=== PATIENT | female | born 1985 | race African-American/Black ===

== ENCOUNTER → 2023-06-06 | Emergency (ER) | payer OTHER ==
[~2023-06-06] MED LIST: ACETAMINOPHEN 500 MG TAB ONE; ALBUTEROL 2.5 MG/3 ML NEB SOL ONE; DIPHENHYDRAMINE 50 MG/ML VIAL ONE; IPRATROPIUM BROM 0.5MG/2.5ML ONE; KETOROLAC 30 MG/ML INJ ONE; METOCLOPRAMIDE 10 MG/2mL INJ ONE; NA CHLORIDE 0.9% 1,000 ML ONE
[2023-06-06 05:54] LABS: Absolute Lymphocytes (CBC) 0.3 K/uL (0.7-4.9); Lymphocytes % 3.4 % (15.3-44.8); MCV 76.4 fL (80-100); MPV 7.2 fL (7.6-11.3); Platelets 347 thou/uL (152-406); RBC Red Blood Cell Count 4.98 M/uL (3.86-4.86)
[2023-06-06 06:07] LABS: Albumin 3.2 g/dL (3.4-5.0); Bilirubin Total 0.6 mg/dL (0.2-1.0); Potassium 3.2 mEq/L (3.5-5.1); Protein, Total 8.4 g/dL (6.4-8.2)
--- NOTE | 2023-06-06 06:45 | EDPHYS ---
Physician Documentation [facility] Name: Ave Somers Age: 38 yrs Sex: Female : 1985 Arrival Date: 06/06/2023 Time: 05:09 Bed 14 Private MD: ED Physician Fabrizio Centeno HPI: 06/06 05:25 This 38 yrs old Black Female presents to ER via Wheelchair with complaints of Shortness ec2 Of Breath, Cough, Chest Congestion. 05:25 Patient arrives today for evaluation of URI signs and symptoms. Reports that she has ec2 been experiencing symptoms for 1 day. Patient reports some associated decreased p.o. intake, nausea, vomiting, no diarrhea symptoms. States that she has some shortness of breath as well as a persistent frequent cough with productive sputum. Reports congestion as well.. 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 - Social history:: Smoking status: Reported history of juuling and/or vaping. Patient uses alcohol, occasionally. street drugs, marijuana. ROS: 05:25 Constitutional: as per hpi ec2 Exam: 05:25 Constitutional: GEN: NAD Head: atraumatic Eyes: EOMI Ears: External ears are ec2 normal. CV: tachycardia LUNGS: no respiratory distress, no wheezes, no rales, no rhonchi ABD: non-distended SKIN: no evidence of rashes MSK: no evidence of trauma NEURO: moves all extremities equally Vital Signs: 05:21 BP 129 / 89; Pulse 114; Resp 18; Temp 99.4(O); Pulse Ox 97% on R/A; Weight 124.74 kg km8 (R); Height 5 ft. 6 in. (R); Pain 4/10; 05:48 BP 105 / 78; Pulse 117; Pulse Ox 99% on Nebulizer Mask; km8 06:00 BP 112 / 69; Pulse 142; Resp 18; Pulse Ox 100% on R/A; km8 06:06 BP 105 / 78; Pulse 145; ec2 06:27 BP 112 / 69; Pulse 134; ec2 06:30 BP 118 / 66; Pulse 134; Resp 18; Pulse Ox 98% on R/A; km8 06:45 Pulse 131; Pulse Ox 95% on R/A; km8 05:21 Body Mass Index 44.39 (124.74 kg, 167.64 cm) [facility] 05:21 Pain Scale: Adult km8 [place] Coma Score: 05:25 Eye Response: spontaneous(4). Motor Response: obeys commands(6). Verbal Response: km8 oriented(5). Total: 15. MDM: 05:23 Patient medically screened. ec2 05:25 Data reviewed: vital signs. ED course: Patient arrives today for evaluation of cough ec2 and cold symptoms. Examination remarkable for well-appearing nontoxic individual is otherwise in no acute distress. Will obtain lab work, chest x-ray, treat the patient symptoms with crystalloid, Reglan, Benadryl and Toradol as well as a DuoNeb. Currently considering viral infection, lower suspicion for pneumonia given lack of focal lung sounds.. 05:43 ED course: Chest x-ray independently reviewed and interpreted by me, shows no acute ec2 intrathoracic process.. 06:02 ED course: CBC is reassuring. . ec2 06:03 ED course: Patient slightly more tachycardic after the albuterol treatment. I suspect ec2 is secondary to the nebulizer treatment, will obtain an EKG.. 06:12 ED course: EKG independently reviewed and interpreted by me, sinus tachycardia, rate ec2 138, no acute ST segment elevations, nonconcerning intervals.. 06:16 ED course: Metabolic profile is reassuring. . ec2 06:44 ED course: On reassessment patient reports marked improvement in her symptoms. Will ec2 discharge to home, patient does have an improving tachycardia which is consistent with the DuoNeb administration. Will prescribe her albuterol as needed, will prescribe Tessalon Perles as well. Return precautions given. I suspect a viral process causing her symptoms.. 06/06 05:24 Order name: CBC with Diff ec2 06/06 05:24 Order name: CMP; Complete Time: 06:16 ec2 06/06 05:24 Order name: CXR XRAY ec2 06/06 05:24 Order name: PO challenge; Complete Time: 06:16 ec2 06/06 06:03 Order name: EKG - Nurse/Tech; Complete Time: 06:16 ec2 Administered Medications: 05:47 Drug: NS 0.9% IV 1000 ml IV at 1 bolus Per protocol; 1000 mL bolus Route: IV; Rate: 1 km8 bolus; Site: left antecubital; 06:56 Follow up: IV Status: Order to discontinue infusion; IV Intake: 800ml km8 05:47 Drug: metoCLOPramide IVP 10 mg IVP once; over 1 to 2 minutes Route: IVP; Site: left [facility] antecubital; 06:16 Follow up: Response: No adverse reaction 8 05:47 Drug: diphenhydrAMINE IVP 25 mg IVP once Route: IVP; Site: left antecubital; km8 06:16 Follow up: Response: No adverse reaction 8 05:47 Drug: Ketorolac IVP 15 mg IVP once Route: IVP; Site: left antecubital; km8 06:16 Follow up: Response: No adverse reaction km8 05:48 Drug: DuoNeb Nebulize (3:1) (2.5 mg - 0.5 mg) 3 ml Nebulizer once Route: Nebulizer; km8 06:15 Follow up: Response: No adverse reaction km8 06:15 Drug: Acetaminophen PO 1000 mg PO once Route: PO; km8 06:56 Follow up: Response: No adverse reaction km8 06:15 Drug: NS 0.9% IV 1000 ml IV at 1 bolus Per protocol; 1000 mL bolus Route: IV; Rate: 1 km8 bolus; Site: left antecubital; 06:56 Follow up: IV Status: Order to discontinue infusion; IV Intake: 400ml km8 Disposition Summary: 06/06/23 06:45 Discharge Ordered Notes: Location: Home ec2 Condition: Stable ec2 Diagnosis - Viral infection, unspecified ec2 Followup: ec2 - With: Private Physician - When: - Reason: Recheck today's complaints Discharge Instructions: - Discharge Summary Sheet ec2 - Viral Illness, Adult ec2 Forms: - Medication Reconciliation Form ec2 - Thank You Letter ec2 - Antibiotic Education ec2 - Prescription Opioid Use ec2 - Patient Portal Instructions ec2 - Leadership Thank You Letter ec2 Prescriptions: - albuterol sulfate 90 mcg/actuation Inhalation HFA Aerosol Inhaler - inhale 2 inhalation INHALATION route every 3 hours as needed for bronchospasm; ec2 administer via ventilator; 1 unit; Refills: 0, Product Selection Permitted - Zofran 4 mg Oral Tablet - take 1 tablet ORAL route every 12 hours As needed; 20 tablet; Refills: 0, ec2 Product Selection Permitted - Tessalon Perles 100 mg Oral Capsule - take 1 capsule ORAL route every 8 hours As needed; 15 capsule; Refills: 0, ec2 Product Selection Permitted Signatures: Dispatcher [employer] Fabrizio Pearce MD MD ec2 Yolanda Melendez RN RN km8
--- NOTE | 2023-06-06 06:45 | ER ---
Nurse's Notes [facility] Name: Ave Somers Age: 38 yrs Sex: Female : 1985 Arrival Date: 06/06/2023 Time: 05:09 Bed 14 Private MD: Diagnosis: Viral infection, unspecified Presentation: 06/06 05:21 Chief complaint: Patient states: fever, dry cough, congestion, and vomiting starting 2 km8 days ago. Coronavirus screen: Client denies travel out of the [place] in the last 14 days. Ebola Screen: No symptoms or risks identified at this time. Initial Sepsis Screen: Does the patient meet any 2 criteria? HR > 90 bpm. Does the patient have a suspected source of infection? No. Patient's initial sepsis screen is negative. Risk Assessment: Do you want to hurt yourself or someone else? Patient reports no desire to harm self or others. Onset of symptoms was June 04, 2023. 05:21 Method Of Arrival: Wheelchair km8 05:21 Acuity: LAY 4 km8 Triage Assessment: 05:22 General: Appears in no apparent distress. uncomfortable, Behavior is calm, cooperative, km8 appropriate for age. Pain: Complains of pain in generalized body Pain currently is 4 out of 10 on a pain scale. EENT: Reports nasal congestion. Neuro: Level of Consciousness is awake, alert, obeys commands, Oriented to person, place, time, situation. Cardiovascular: Denies chest pain, shortness of breath, Capillary refill < 3 seconds Patient's skin is warm and dry. Respiratory: Reports cough that is dry, Airway is patent Respiratory effort is even, labored, Respiratory pattern is regular, symmetrical, Onset: The symptoms/episode began/occurred gradually, the patient has mild shortness of breath. GI: Reports nausea, vomiting. : No signs and/or symptoms were reported regarding the genitourinary system. Derm: No signs and/or symptoms reported regarding the dermatologic system. Skin is intact, is healthy with good turgor, Skin is dry, Skin is pink, warm \T\ dry. normal, Skin temperature is warm. Musculoskeletal: No signs and/or symptoms reported regarding the musculoskeletal system. Circulation, motion, and sensation intact. Range of motion: intact in all extremities. 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 - Social history:: Smoking status: Reported history of juuling and/or vaping. Patient uses alcohol, occasionally. street drugs, marijuana. Screenin:25 [facility] ED Fall Risk Assessment (Adult) History of falling in the last 3 months, km8 including since admission No falls in past 3 months (0 pts) Confusion or Disorientation No (0 pts) Intoxicated or Sedated No (0 pts) Impaired Gait No (0 pts) Mobility Assist Device Used No (0 pt) Altered Elimination No (0 pt) Score/Fall Risk Level 0 - 2 = Low Risk Oriented to surroundings, Maintained a safe environment, Educated pt \T\ family on fall prevention, incl call for assistance when getting out of bed, Assessed \T\ reinforced patient's understanding of fall precautions. Abuse screen: Denies threats or abuse. Denies injuries from another. Nutritional screening: No deficits noted. Tuberculosis screening: No symptoms or risk factors identified. Assessment: 05:25 General: see triage assessment/notes. [facility] 06:16 Reassessment: MD notified of HR reaching 150, EKG ordered; pt reports feeling better [facility] after the albuterol treatment. 06:30 Reassessment: Patient appears in no apparent distress at this time. Patient and/or km8 family updated on plan of care and expected duration. Pain level reassessed. Patient is alert, oriented x 3, equal unlabored respirations, skin warm/dry/pink. Patient states symptoms have improved. Vital Signs: 05:21 BP 129 / 89; Pulse 114; Resp 18; Temp 99.4(O); Pulse Ox 97% on R/A; Weight 124.74 kg km8 (R); Height 5 ft. 6 in. (R); Pain 4/10; 05:48 BP 105 / 78; Pulse 117; Pulse Ox 99% on Nebulizer Mask; km8 06:00 BP 112 / 69; Pulse 142; Resp 18; Pulse Ox 100% on R/A; km8 06:06 BP 105 / 78; Pulse 145; ec2 06:27 BP 112 / 69; Pulse 134; ec2 06:30 BP 118 / 66; Pulse 134; Resp 18; Pulse Ox 98% on R/A; km8 06:45 Pulse 131; Pulse Ox 95% on R/A; km8 05:21 Body Mass Index 44.39 (124.74 kg, 167.64 cm) km8 05:21 Pain Scale: Adult km8 [place] Coma Score: 05:25 Eye Response: spontaneous(4). Motor Response: obeys commands(6). Verbal Response: km8 oriented(5). Total: 15. ED Course: 05:12 Patient arrived in ED. jj6 05:12 Fabrizio Centeno MD is Attending Physician. ec2 05:22 Triage completed. km8 05:22 Arm band placed on right wrist. km8 05:25 Patient has correct armband on for positive identification. Bed in low position. Call km8 light in reach. Side rails up X 1. Pulse ox on. NIBP on. 05:25 No provider procedures requiring assistance completed. Patient maintains SpO2 km8 saturation greater than 95% on room air. 05:33 Inserted saline lock: 20 gauge in left antecubital area, using aseptic technique. Blood km8 collected. 05:38 CXR XRAY In Process Unspecified. EDMS 05:49 Yolanda Melendez, RN is Primary Nurse. km8 06:15 Diet: Patient given water. Tolerated well. km8 06:55 Provided Education on: d/c teaching. km8 06:55 IV discontinued, intact, bleeding controlled, No redness/swelling at site. Pressure km8 dressing applied. Administered Medications: 05:47 Drug: NS 0.9% IV 1000 ml IV at 1 bolus Per protocol; 1000 mL bolus Route: IV; Rate: 1 km8 bolus; Site: left antecubital; 06:56 Follow up: IV Status: Order to discontinue infusion; IV Intake: 800ml km8 05:47 Drug: metoCLOPramide IVP 10 mg IVP once; over 1 to 2 minutes Route: IVP; Site: left km8 antecubital; 06:16 Follow up: Response: No adverse reaction km8 05:47 Drug: diphenhydrAMINE IVP 25 mg IVP once Route: IVP; Site: left antecubital; km8 06:16 Follow up: Response: No adverse reaction km8 05:47 Drug: Ketorolac IVP 15 mg IVP once Route: IVP; Site: left antecubital; km8 06:16 Follow up: Response: No adverse reaction km8 05:48 Drug: DuoNeb Nebulize (3:1) (2.5 mg - 0.5 mg) 3 ml Nebulizer once Route: Nebulizer; km8 06:15 Follow up: Response: No adverse reaction km8 06:15 Drug: Acetaminophen PO 1000 mg PO once Route: PO; km8 06:56 Follow up: Response: No adverse reaction km8 06:15 Drug: NS 0.9% IV 1000 ml IV at 1 bolus Per protocol; 1000 mL bolus Route: IV; Rate: 1 km8 bolus; Site: left antecubital; 06:56 Follow up: IV Status: Order to discontinue infusion; IV Intake: 400ml km8 Medication: 05:25 VIS not applicable for this client. km8 Intake: 06:56 IV: 400ml; Total: 400ml. km8 06:56 IV: 800ml; Total: 1200ml. km8 Outcome: 06:45 Discharge ordered by MD. ec2 06:55 Discharged to home ambulatory, with significant other, km8 06:55 Condition: good 06:55 Discharge instructions given to patient, significant other, Instructed on discharge instructions, follow up and referral plans. medication usage, Demonstrated understanding of instructions, follow-up care, medications, Prescriptions given X 3, 06:56 Patient left the ED. km8 Signatures: Dispatcher [employer] Maya Gonzalez jj6 Fabrizio Centeno MD MD ec2 Yolanda Melendez RN RN km8
[2023-06-06 07:00] LABS: Blood Morphology Comment NOT SEEN (NOT SEEN); Platelet Estimate ADEQ; White Blood Cell Scan OK (OK)
[2023-06-06 11:32] VITALS: TEMP 99.4
[2023-06-06 11:45] VITALS: BP 118/66; O2SAT 95
--- NOTE | 2023-06-06 14:52 | RAD REPORT ---
EXAM DESCRIPTION: RAD - Chest Single View - 06/06/2023 5:36 am CLINICAL HISTORY: SOB COMPARISON: None TECHNIQUE: Single AP view of the chest. FINDINGS: Lung volumes adequate. Cardiac silhouette is normal in size. No pneumothorax. No large pleural effusion. No focal consolidation. No acute bony finding. IMPRESSION: No evidence of acute cardiopulmonary disease. Electronically signed by: Crow Samson MD 06/06/2023 05:44 AM FAN INSTALLER Due to temporary technical issues with the PACS/Fluency reporting system, reports are being signed by the in house radiologist without review as a courtesy to ensure prompt reporting. The interpreting r adiologist is fully responsible for the content of the report.
--- NOTE | 2023-06-10 17:10 | EKG ---
Test Date: 2023-06-06 Test Time: 06:09:11 White Sourer: ALO MEASUREMENT RESULTS: Intervals: Rate: 138 SD: 96 QRSD: 78 QT: 386 QTc: 584 Watkins: P: SD: 96 QRS: -11 T: 44 INTERPRETIVE STATEMENTS: Sinus tachycardia with short SD Otherwise normal ECG No previous ECG available for comparison Electronically Signed On 06-10-23 16:56:56 RESOURCE ROOM SPECIAL EDUCATION TEACHER by Juanjose Vinson
== END ==
LOC: ER 05:09
DX: B34.9 Viral infection, unspecified (principal); Z91.018 Allergy to other foods
CPT/HCPCS: 96361; 93005; 85025; 36415; 80053; 71045; 94640; 96375; 96374; 99285; J2765; J1200; J7613; J7644; J7030 ×2

== ENCOUNTER → 2023-06-11 | Emergency (ER) | payer OTHER ==
[~2023-06-11] MED LIST changes: -ACETAMINOPHEN 500 MG TAB ONE; -ALBUTEROL 2.5 MG/3 ML NEB SOL ONE; +DICYCLOMINE HCL 10 MG CAP ONE; -DIPHENHYDRAMINE 50 MG/ML VIAL ONE; +FAMOTIDINE 20 MG TAB ONE; +FAMOTIDINE 20 MG/2 ML VIAL IV ONE; -IPRATROPIUM BROM 0.5MG/2.5ML ONE; -KETOROLAC 30 MG/ML INJ ONE; +POTASSIUM CL SA 10 MEQ TAB PO ONE; +PROMETHAZINE 25 MG TABLET ONE
[2023-06-12 00:21] LABS: Absolute Lymphocytes (CBC) 3.1 K/uL (0.7-4.9); Hematocrit 39.3 % (36.0-45.0); Lymphocytes % 49.3 % (15.3-44.8); MCV 76.5 fL (80-100); MPV 7.3 fL (7.6-11.3); Platelets 332 thou/uL (152-406); RBC Red Blood Cell Count 5.14 M/uL (3.86-4.86)
[2023-06-12 00:34] LABS: Albumin 3.2 g/dL (3.4-5.0); Bilirubin Total 0.5 mg/dL (0.2-1.0); Potassium 2.9 mEq/L (3.5-5.1); Protein, Total 8.2 g/dL (6.4-8.2)
[2023-06-12 00:47] LABS: Specific Gravity 1.015 (1.005-1.030)
[2023-06-12 00:47] LABS: Specific Gravity 1.015 (1.005-1.030); Urine Bilirubin 1+ (Negative); Urine Blood Negative (Negative); Urine Clarity Clear (Clear); Urine Color Yellow (Yellow); Urine Glucose Negative (Negative); Urine Protein 1+ (Negative)
[2023-06-12 00:48] LABS: Urine Bacteria <20 /HPF (<20); Urine Mucus Slight /HPF (None Seen); Urine RBC <5 /HPF (None Seen)
--- NOTE | 2023-06-12 04:35 | ER ---
Nurse's Notes [facility] Name: Ave Somers Age: 38 yrs Sex: Female : 1985 Arrival Date: 06/11/2023 Time: 22:27 Bed 12 Private MD: Diagnosis: Acute gastroenteritis, nausea vomiting diarrhea Presentation: 06/11 23:05 Chief complaint: Patient states: ABD PAIN X 4 DAYS. N/V/D. Coronavirus screen: At this [facility] time, the client does not indicate any symptoms associated with coronavirus-19. Ebola Screen: No symptoms or risks identified at this time. Initial Sepsis Screen: Does the patient meet any 2 criteria? No. Patient's initial sepsis screen is negative. Does the patient have a suspected source of infection? No. Patient's initial sepsis screen is negative. Risk Assessment: Do you want to hurt yourself or someone else? Patient reports no desire to harm self or others. 23:05 Method Of Arrival: Ambulatory [facility] 23:05 Acuity: LAY 3 j7 Triage Assessment: 23:09 General: Appears in no apparent distress. General: Appears uncomfortable, Behavior is [facility] calm, cooperative, appropriate for age. Pain: Complains of pain in epigastric area. GI: Reports upper abdominal pain, nausea. 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 - Social history:: Smoking status: Reported history of juuling and/or vaping. Patient uses alcohol, occasionally. street drugs, marijuana. Screenin:11 [facility] ED Fall Risk Assessment (Adult) History of falling in the last 3 months, j7 including since admission No falls in past 3 months (0 pts) Confusion or Disorientation No (0 pts) Intoxicated or Sedated No (0 pts) Impaired Gait No (0 pts) Mobility Assist Device Used No (0 pt) Altered Elimination No (0 pt) Score/Fall Risk Level 0 - 2 = Low Risk Oriented to surroundings, Maintained a safe environment, Educated pt \T\ family on fall prevention, incl call for assistance when getting out of bed. Abuse screen: Denies threats or abuse. Abuse screen: Denies injuries from another. Abuse screen: Denies threats or abuse. Nutritional screening: No deficits noted. Tuberculosis screening: No symptoms or risk factors identified. Assessment: 23:11 General: Appears in no apparent distress. comfortable, obese, well groomed, well pf1 developed, Behavior is calm, cooperative, appropriate for age, quiet. 23:11 Pain: Complains of pain in abdomen and epigastric area. Neuro: No deficits noted. Level pf1 of Consciousness is awake, alert, obeys commands, Oriented to person, place, time, situation. Cardiovascular: No deficits noted. Capillary refill < 3 seconds Patient's skin is warm and dry. Respiratory: No deficits noted. Airway is patent Respiratory effort is even, unlabored, Respiratory pattern is regular, symmetrical, Breath sounds are clear bilaterally. GI: Abdomen is round non-distended, Bowel sounds present X 4 quads. Abd is soft X 4 quads Reports upper abdominal pain, diarrhea, epigastric pain, nausea, vomiting. 06/12 00:00 Reassessment: Patient appears in no apparent distress at this time. Patient and/or pf1 family updated on plan of care and expected duration. Pain level reassessed. Patient is alert, oriented x 3, equal unlabored respirations, skin warm/dry/pink. 01:00 Reassessment: Patient appears in no apparent distress at this time. Patient and/or pf1 family updated on plan of care and expected duration. Pain level reassessed. Patient is alert, oriented x 3, equal unlabored respirations, skin warm/dry/pink. Patient states symptoms have improved. 02:00 Reassessment: Patient appears in no apparent distress at this time. Patient and/or pf1 family updated on plan of care and expected duration. Pain level reassessed. Patient is alert, oriented x 3, equal unlabored respirations, skin warm/dry/pink. Patient states feeling better. Patient states symptoms have improved. 03:00 Reassessment: Patient appears in no apparent distress at this time. Patient and/or pf1 family updated on plan of care and expected duration. Pain level reassessed. Patient is alert, oriented x 3, equal unlabored respirations, skin warm/dry/pink. Patient states feeling better. Patient states symptoms have improved. Vital Signs: 06/11 23:05 BP 129 / 92; Pulse 69; Resp 18; Temp 98.1; Pulse Ox 100% ; Weight 124.74 kg; Height 5 jj7 ft. 6 in. ; Pain 4/10; 06/12 00:00 BP 131 / 89; Pulse 71; Resp 16; Pulse Ox 100% ; pf1 01:00 BP 128 / 90; Pulse 75; Resp 16; Pulse Ox 100% on R/A; pf1 02:00 BP 135 / 87; Pulse 67; Resp 16; Pulse Ox 99% on R/A; pf1 03:00 BP 130 / 82; Pulse 65; Resp 16; Pulse Ox 99% on R/A; Pain 2/10; pf1 06/11 23:05 Body Mass Index 44.39 (124.74 kg, 167.64 cm) j7 06/11 23:05 Pain Scale: Adult j7 03:00 Pain Scale: Adult pf1 ED Course: 06/11 22:29 Patient arrived in ED. jj6 22:31 [facility] Burger [facility] kb 22:31 Rafael Corcoran MD is Attending Physician. kb 23:09 Triage completed. jj7 23:09 Arm band placed on right wrist. jj7 23:11 Patient has correct armband on for positive identification. Bed in low position. Call pf1 light in reach. Side rails up X 1. 23:11 No provider procedures requiring assistance completed. jj7 23:56 Inserted saline lock: 20 gauge in left antecubital area, using aseptic technique. Blood ty collected. 06/12 00:33 Test, Urine Sent. 00:34 CMP Sent. 00:34 Lipase Sent. 03:16 Provided Education on: prescriptions . pf1 03:16 IV discontinued, intact, bleeding controlled, No redness/swelling at site. Pressure pf1 dressing applied. 04:35 CT Abd/Pelvis - IV Contrast Only In Process Unspecified. EDMS Administered Medications: 01:00 Drug: NS 0.9% IV 1000 ml IV at 1 bolus Per protocol; 1000 mL bolus Route: IV; Rate: 1 pf1 bolus; Site: left antecubital; 02:00 Follow up: Response: No adverse reaction; Marked relief of symptoms; IV Status: pf1 Completed infusion; IV Intake: 1000ml 01:00 Drug: Famotidine IVP 20 mg IVP once; dilute with 10 mL 0.9% NaCl; give over 2 minutes pf1 Route: IVP; Site: left antecubital; 02:00 Follow up: Response: No adverse reaction; Marked relief of symptoms pf1 01:00 Drug: Potassium Chloride PO 40 mEq PO once Route: PO; pf1 02:00 Follow up: Response: No adverse reaction; Marked relief of symptoms pf1 02:40 Drug: metoCLOPramide IVP 10 mg IVP once; over 1 to 2 minutes Route: IVP; Site: left pf1 antecubital; 03:16 Follow up: Response: No adverse reaction; Marked relief of symptoms; Nausea is decreasedpf1 03:10 Drug: Promethazine PO 25 mg PO once Route: PO; pf1 03:16 Follow up: Response: No adverse reaction; Marked relief of symptoms; Nausea is decreasedpf1 03:10 Drug: Famotidine PO 20 mg PO once Route: PO; pf1 03:16 Follow up: Response: No adverse reaction; Marked relief of symptoms; Pain is decreased pf1 03:10 Drug: Dicyclomine PO 20 mg PO once Route: PO; pf1 03:16 Follow up: Response: No adverse reaction; Marked relief of symptoms; Pain is decreased pf1 Medication: 03:16 VIS not applicable for this client. pf1 Intake: 02:00 IV: 1000ml; Total: 1000ml. pf1 Outcome: 02:56 Discharge ordered by . sp4 03:14 Discharged to home ambulatory, with family, pf1 03:14 Condition: improved 03:14 Discharge instructions given to patient, family, Instructed on discharge instructions, follow up and referral plans. Demonstrated understanding of instructions, follow-up care, medications, Prescriptions given X 3, 03:16 Patient left the ED. pf1 Signatures: Dispatcher [employer] EDOH Josie Burger, [employer] PAINT TINTER-Ely Jacobsen Jennifer jj6 Allison Colby RN RN jj7 Nessa Roberts RN RN pf1 Rafael Corcoran MD MD sp4 Zacarias Villagomez ty Corrections: (The following items were deleted from the chart) 00:51 00:33 Urinalysis+U.LAB.BRZ drawn and sent. EDMS
--- NOTE | 2023-06-12 04:35 | EDPHYS ---
Physician Documentation [facility] Name: Ave Somers Age: 38 yrs Sex: Female : 1985 Arrival Date: 06/11/2023 Time: 22:27 Bed 12 Private MD: ED Physician Rafael Corcoran HPI: 06/11 23:17 This 38 yrs old Black Female presents to ER via Ambulatory with complaints of Abdominal kb Cramping, Abdominal Pain. 23:17 Patient is a 38-year-old female with no medical history who presents for upper kb abdominal pain, nausea and vomiting that started 3 days ago. Denies fever. States she had a virus last week but the symptoms had resolved from that.. 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 - Social history:: Smoking status: Reported history of juuling and/or vaping. Patient uses alcohol, occasionally. street drugs, marijuana. ROS: 23:16 Constitutional: Negative for fever, chills, and weight loss, kb 23:16 Abdomen/GI: Positive for abdominal pain, nausea and vomiting, 23:16 All other systems are negative, Exam: 23:16 Constitutional: This is a well developed, well nourished patient who is awake, alert, kb and in no acute distress. Head/Face: Normocephalic, atraumatic. ENT: Moist Mucous membranes Cardiovascular: Regular rate Respiratory: Respirations even and unlabored. No increased work of breathing. Talking in full sentences Abdomen/GI: Soft, non-tender. No distention Skin: Warm, dry with normal turgor. Normal color. MS/ Extremity: Pulses equal, no cyanosis. Neurovascular intact. Full, normal range of motion. Neuro: Awake and alert, GCS 15, oriented to person, place, time, and situation. Moves all extremities. Normal gait. Vital Signs: 23:05 BP 129 / 92; Pulse 69; Resp 18; Temp 98.1; Pulse Ox 100% ; Weight 124.74 kg; Height 5 jj7 ft. 6 in. ; Pain 4/10; 06/12 00:00 BP 131 / 89; Pulse 71; Resp 16; Pulse Ox 100% ; pf1 01:00 BP 128 / 90; Pulse 75; Resp 16; Pulse Ox 100% on R/A; pf1 02:00 BP 135 / 87; Pulse 67; Resp 16; Pulse Ox 99% on R/A; pf1 03:00 BP 130 / 82; Pulse 65; Resp 16; Pulse Ox 99% on R/A; Pain 2/10; pf1 06/11 23:05 Body Mass Index 44.39 (124.74 kg, 167.64 cm) [facility] 06/11 23:05 Pain Scale: Adult [facility] 03:00 Pain Scale: Adult pf1 MDM: 06/11 22:33 Patient medically screened. kb 23:17 Data reviewed: vital signs, nurses notes. kb 06/12 00:56 Transition of care: After a detail discussion of the patient's case, care is kb transferred to Rafael Corcoran MD. 02:49 Differential diagnosis: Gastritis, gastroenteritis. ED course: FINDINGS: Lung Bases: sp4 The visualized lung bases are clear. Abdomen: Liver: The liver has normal contour and density. No suspicious mass. Gallbladder: Surgically absent. No significant biliary dilatation. Spleen, Pancreas, and Adrenal Glands: The spleen, pancreas, and adrenal glands are unremarkable. Kidneys: No suspicious mass. No urinary tract calculi. No hydronephrosis. Vasculature: The aorta and IVC have normal caliber and position. The portal vein is patent. Stomach: Tiny hiatal hernia. Other: No free intraperitoneal air. No free fluid or lymphadenopathy. Pelvis: Bladder: Under distended. Bowel: No dilated loops of large or small bowel. No acute inflammatory process. Appendix: Normal appendix. Pelvis: No suspicious mass. Bones: No destructive bone lesions identified. IMPRESSION: No acute abnormality on CT of the abdomen and pelvis.. 02:55 Consideration of Admission/Observation Escalation of care including sp4 admission/observation considered. ED course: Patient's symptoms have improved after management in the ER. Patient stable to discharge home with clear liquid diet also Bentyl also Phenergan and p.o. Pepcid. Currently advise clear liquid diet for the next 24 hours. 06/11 22:39 Order name: CBC with Diff; Complete Time: 00:22 kb 06/11 22:39 Order name: CMP; Complete Time: 00:35 kb 06/11 22:39 Order name: Lipase; Complete Time: 00:35 kb 06/11 22:39 Order name: Test, Urine; Complete Time: 00:48 kb 06/12 00:47 Order name: Urinalysis w/ reflexes EDMS 06/11 22:39 Order name: CT Abd/Pelvis - IV Contrast Only kb 06/11 22:39 Order name: IV Saline Lock; Complete Time: 00:01 kb 06/11 22:39 Order name: Labs collected and sent; Complete Time: 00:01 kb Administered Medications: 01:00 Drug: NS 0.9% IV 1000 ml IV at 1 bolus Per protocol; 1000 mL bolus Route: IV; Rate: 1 pf1 bolus; Site: left antecubital; 02:00 Follow up: Response: No adverse reaction; Marked relief of symptoms; IV Status: pf1 Completed infusion; IV Intake: 1000ml 01:00 Drug: Famotidine IVP 20 mg IVP once; dilute with 10 mL 0.9% NaCl; give over 2 minutes pf1 Route: IVP; Site: left antecubital; 02:00 Follow up: Response: No adverse reaction; Marked relief of symptoms pf1 01:00 Drug: Potassium Chloride PO 40 mEq PO once Route: PO; pf1 02:00 Follow up: Response: No adverse reaction; Marked relief of symptoms pf1 02:40 Drug: metoCLOPramide IVP 10 mg IVP once; over 1 to 2 minutes Route: IVP; Site: left pf1 antecubital; 03:16 Follow up: Response: No adverse reaction; Marked relief of symptoms; Nausea is decreasedpf1 03:10 Drug: Promethazine PO 25 mg PO once Route: PO; pf1 03:16 Follow up: Response: No adverse reaction; Marked relief of symptoms; Nausea is decreasedpf1 03:10 Drug: Famotidine PO 20 mg PO once Route: PO; pf1 03:16 Follow up: Response: No adverse reaction; Marked relief of symptoms; Pain is decreased pf1 03:10 Drug: Dicyclomine PO 20 mg PO once Route: PO; pf1 03:16 Follow up: Response: No adverse reaction; Marked relief of symptoms; Pain is decreased pf1 Disposition: 02:55 Co-signature as Attending Physician, Josie BERMUDEZ I agree with the assessment sp4 and plan of care. I reviewed the patient's care provided by Advanced Practice Provider \T\ agree w/ the diagnosis \T\ care plan. I personally saw the pt \T\ performed a substantive portion of the visit, incldng all aspects of the (History/Exam/Medical Decision Making). Disposition Summary: 06/12/23 02:56 Discharge Ordered Notes: No work for next 3 days

Bed rest for next 3 days Location: Home sp4 Problem: new sp4 Symptoms: have improved sp4 Condition: Stable sp4 Diagnosis - Acute gastroenteritis, nausea vomiting diarrhea sp4 Followup: sp4 - With: Private Physician - When: 7 - 10 days - Reason: Recheck today's complaints Discharge Instructions: - Discharge Summary Sheet sp4 - Viral Gastroenteritis, Adult, [id number] sp4 - Clear Liquid Diet, Adult, [id number] sp4 Forms: - Patient Portal Instructions sp4 Prescriptions: - Pepcid 20 mg Oral tablet - take 1 tablet ORAL route every 12 hours for 30 days; 60 tablet; Refills: 0, sp4 Product Selection Permitted - promethazine 25 mg Oral tablet - take 1 tablet ORAL route every 6 hours As needed PRN nausea; 30 tablet; sp4 Refills: 0, Product Selection Permitted - dicyclomine 20 mg Oral tablet - take 1 tablet ORAL route every 6 hours PRN abdominal cramps; 60 tablet; sp4 Refills: 0, Product Selection Permitted Signatures: Dispatcher [employer] EDJosie Manrique FNP-C FNP-Ckb Johnson, Juwairiyah RN RN jj7 Nessa Roberts RN RN pf1 Rafael Corcoran MD MD sp4 Corrections: (The following items were deleted from the chart) 00:51 06/11 22:39 Urinalysis+U.LAB.BRZ ordered. EDTN EDTN
[2023-06-12 08:35] VITALS: BP 129/92; TEMP 98.1; O2SAT 100
--- NOTE | 2023-06-12 14:28 | RAD REPORT ---
EXAM DESCRIPTION: CT - Abdomen Pelvis W Contrast - 06/12/2023 1:52 am CLINICAL HISTORY: ABD PAIN COMPARISON: None Available. TECHNIQUE: CT of the abdomen and pelvis performed following the administration of IV contrast. No or al contrast. This exam was performed according to our departmental dose-optimization program, which i ncludes automated exposure control, adjustment of the mA and/or kV according to patient size and/or u se of iterative reconstruction technique. FINDINGS: Lung Bases: The visualized lung bases are clear. Abdomen: Liver: The liver has normal contour and density. No suspicious mass. Gallbladder: Surgically absent. No significant biliary dilatation. Spleen, Pancreas, and Adrenal Glands: The spleen, pancreas, and adrenal glands are unremarkable. Kidneys: No suspicious mass. No urinary tract calculi. No hydronephrosis. Vasculature: The aorta and IVC have normal caliber and position. The portal vein is patent. Stomach: Tiny hiatal hernia. Other: No free intraperitoneal air. No free fluid or lymphadenopathy. Pelvis: Bladder: Under distended. Bowel: No dilated loops of large or small bowel. No acute inflammatory process. Appendix: Normal appendix. Pelvis: No suspicious mass. Bones: No destructive bone lesions identified. IMPRESSION: No acute abnormality on CT of the abdomen and pelvis. Electronically signed by: Leanne Gaviria MD 06/12/2023 01:44 AM [employer]OT[employer] RECREATIONAL FACILITIES MANAGER Due to temporary technical issues with the PACS/Fluency reporting system, reports are being signed by the in house radiologist without review as a courtesy to ensure prompt reporting. The interpreting r adiologist is fully responsible for the content of the report.
== END ==
LOC: ER 22:27
DX: K52.9 Noninfective gastroenteritis and colitis, unspecified (principal); Z88.8 Allergy status to other drugs, medicaments and biological substances; Z91.018 Allergy to other foods
CPT/HCPCS: 96361; 85025; 36415; 83690; 80053; 74177; 96375; 96374; 99284; Q9967